=== PATIENT | male | born 1965 | race Two or more races ===

== ENCOUNTER 2024-04-18 22:11 | Inpatient (IN) | payer OTHER ==
[~2024-04-18] VITALS: Ht 154.9 cm; Wt 79.4 kg
[2024-04-18 22:53] LABS: BASOPHILS # (AUTO) 0.1 K/uL (0.0-0.2); BASOPHILS % (AUTO) 0.7 % (0.0-2.0); EOSINOPHILS # (AUTO) 0.1 K/uL (0.0-0.7); EOSINOPHILS % (AUTO) 1.2 % (0.0-6.0); HEMATOCRIT 41 % (39-51); HEMOGLOBIN 13.2 g/dL (13.5-17.5); LYMPHOCYTES # (AUTO) 0.9 K/uL (0.8-4.8); LYMPHOCYTES % (AUTO) 11.8 % (20.0-44.0); MEAN CORPUSCULAR HEMOGLOBIN 29 PG (26.0-33.0); MEAN CORPUSCULAR HGB CONC 32 g/dl (31.0-36.0); MEAN CORPUSCULAR VOLUME 91 fL (80-96); MONOCYTES # (AUTO) 0.5 K/uL (0.1-1.30); MONOCYTES % (AUTO) 6.3 % (2.0-12.0); NEUTROPHILS # (AUTO) 5.9 K/uL (1.8-8.9); PLATELET COUNT (AUTO) 235 K/uL (150-450); RED BLOOD CELL COUNT(AUTO) 4.48 MIL/uL (4.5-6.0); RED CELL DISTRIBUTION WIDTH 15.7 % (11.5-15.0); WHITE BLOOD COUNT (AUTO) 7.4 K/uL (4.3-11.0)
[2024-04-18] MEDS ORDERED: FUROSEMIDE 40 MG/4 ML VIAL ONE (22:57)
[2024-04-18] MEDS: FUROSEMIDE 40 MG/4 ML VIAL IV ONE (23:02)
[2024-04-18 23:09] LABS: CALCIUM, SERUM 8.9 mg/dL (8.5-10.1); CREATININE 1.2 mg/dL (0.6-1.3); POTASSIUM 3.7 mmol/L (3.5-5.1)
[2024-04-18 23:22] LABS: ALBUMIN 3.4 g/dL (3.4-5.0); BILIRUBIN,TOTAL 1.5 mg/dL (0.2-1.0); TOTAL PROTEIN, SERUM 7.1 g/dL (6.4-8.2)
[2024-04-19] VITALS (7 sets, daily range): BP systolic 94–144; BP diastolic 60–91; TEMP 97.5–98.1; O2SAT 96–99
[2024-04-19] MEDS ORDERED: ACETAMINOPHEN 325 MG TABLET PO PRN (02:00)
[2024-04-19] MEDS ORDERED: MAGNESIUM HYDROXIDE 30 ML UDC PO PRN (02:00)
[2024-04-19] MEDS ORDERED: MAG HYDROX/AL HYDROX/SIMETH 30 ML UDC PO PRN (02:00)
[2024-04-19] MEDS ORDERED: ONDANSETRON HCL/PF 4 MG/2 ML VIAL IVP PRN (02:00)
[2024-04-19] MEDS ORDERED: Z GUARD REMEDY 4 OZ OINT TP PRN (02:00)
[2024-04-19 07:16] LABS: BASOPHILS % (AUTO) 0.6 % (0.0-2.0); EOSINOPHILS # (AUTO) 0.1 K/uL (0.0-0.7); EOSINOPHILS % (AUTO) 1.8 % (0.0-6.0); HEMATOCRIT 43 % (39-51); HEMOGLOBIN 14.1 g/dL (13.5-17.5); LYMPHOCYTES # (AUTO) 2.2 K/uL (0.8-4.8); LYMPHOCYTES % (AUTO) 27.5 % (20.0-44.0); MEAN CORPUSCULAR HEMOGLOBIN 30 PG (26.0-33.0); MEAN CORPUSCULAR HGB CONC 33 g/dl (31.0-36.0); MEAN CORPUSCULAR VOLUME 92 fL (80-96); MONOCYTES # (AUTO) 0.8 K/uL (0.1-1.30); MONOCYTES % (AUTO) 10.5 % (2.0-12.0); NEUTROPHILS # (AUTO) 4.7 K/uL (1.8-8.9); NEUTROPHILS % (AUTO) 59.6 % (43.0-81.0); PLATELET COUNT (AUTO) 257 K/uL (150-450); RED BLOOD CELL COUNT(AUTO) 4.69 MIL/uL (4.5-6.0); RED CELL DISTRIBUTION WIDTH 16.2 % (11.5-15.0); WHITE BLOOD COUNT (AUTO) 7.9 K/uL (4.3-11.0)
[2024-04-19 07:22] LABS: CALCIUM, SERUM 8.8 mg/dL (8.5-10.1); CREATININE 1.2 mg/dL (0.6-1.3); MAGNESIUM 2.5 mg/dL (1.8-2.4); PHOSPHORUS 3.3 mg/dL (2.5-4.9)
[2024-04-19] MEDS: PANTOPRAZOLE 40 MG TABLET.DR PO SCH (08:41)
[2024-04-19] MEDS: FUROSEMIDE 40 MG/4 ML VIAL IV SCH (08:41)
[2024-04-19] MEDS: ENOXAPARIN SODIUM 40 MG/0.4 ML DISP.SYRIN SQ SCH (08:42)
[2024-04-19] MEDS ORDERED: MIDO10TA PO (09:07)
[2024-04-19] MEDS ORDERED: DOCU100C36 PO (09:07)
[2024-04-19] MEDS ORDERED: AMIO200T5 PO (09:07)
[2024-04-19] MEDS ORDERED: FURO40TA5 PO (09:07)
[2024-04-19] MEDS ORDERED: FOLI0.4T6 PO (09:07)
[2024-04-19] MEDS ORDERED: DIGO250T PO (09:07)
[2024-04-19] MEDS ORDERED: LOSA25TA3 PO (09:07)
[2024-04-19] MEDS ORDERED: HYDR-4076 PO (09:07)
[2024-04-19] MEDS ORDERED: RIFA550T PO (09:07)
[2024-04-19] MEDS: AMIODARONE HCL 200 MG TABLET PO SCH (12:02)
[2024-04-19] MEDS: RIFAXIMIN 550 MG TABLET PO SCH (12:02)
[2024-04-19] MEDS: DOCUSATE SODIUM 100 MG CAPSULE PO SCH (12:02)
[2024-04-19 12:41] LABS: SERUM AMMONIA 15 umol/L (11-32)
[2024-04-19 13:31] LABS: DIGOXIN < 0.20 ng/mL (0.90-2.00)
[2024-04-20] VITALS: BP 90/70; TEMP 97.5; O2SAT 97
[2024-04-20 04:00] VITALS: BP 105/79; TEMP 97.3; O2SAT 95
[2024-04-20 07:17] LABS: BASOPHILS % (AUTO) 0.5 % (0.0-2.0); EOSINOPHILS # (AUTO) 0.1 K/uL (0.0-0.7); EOSINOPHILS % (AUTO) 1.1 % (0.0-6.0); HEMATOCRIT 42 % (39-51); HEMOGLOBIN 13.7 g/dL (13.5-17.5); LYMPHOCYTES # (AUTO) 1.6 K/uL (0.8-4.8); LYMPHOCYTES % (AUTO) 25.1 % (20.0-44.0); MEAN CORPUSCULAR HEMOGLOBIN 30 PG (26.0-33.0); MEAN CORPUSCULAR HGB CONC 33 g/dl (31.0-36.0); MEAN CORPUSCULAR VOLUME 91 fL (80-96); MONOCYTES # (AUTO) 0.6 K/uL (0.1-1.30); MONOCYTES % (AUTO) 9.1 % (2.0-12.0); NEUTROPHILS # (AUTO) 4.2 K/uL (1.8-8.9); NEUTROPHILS % (AUTO) 64.2 % (43.0-81.0); PLATELET COUNT (AUTO) 253 K/uL (150-450); RED BLOOD CELL COUNT(AUTO) 4.56 MIL/uL (4.5-6.0); RED CELL DISTRIBUTION WIDTH 16.2 % (11.5-15.0); WHITE BLOOD COUNT (AUTO) 6.5 K/uL (4.3-11.0)
[2024-04-20 07:48] LABS: ALBUMIN 3.5 g/dL (3.4-5.0); CALCIUM, SERUM 8.5 mg/dL (8.5-10.1); MAGNESIUM 2.1 mg/dL (1.8-2.4); PHOSPHORUS 3.2 mg/dL (2.5-4.9); POTASSIUM 3.7 mmol/L (3.5-5.1); TOTAL PROTEIN, SERUM 7.3 g/dL (6.4-8.2)
[2024-04-20 08:00] VITALS: BP 123/52; TEMP 97.5; O2SAT 96
[2024-04-20] MEDS: SPIRONOLACTONE 25 MG TABLET PO SCH (08:24)
[2024-04-20] MEDS: DIGOXIN 0.25 MG TABLET PO SCH (08:26)
[2024-04-20] MEDS: METOPROLOL TARTRATE 50 MG TABLET PO SCH (08:32)
[2024-04-20] MEDS ORDERED: METO50TA16 PO (10:55)
[2024-04-20] MEDS ORDERED: SPIR25TA6 PO (10:55)
[2024-04-20 16:00] VITALS: BP 81/64; TEMP 98.2; O2SAT 100
[2024-04-20] MEDS: MUPIROCIN OINT 2% 22 GM TUBE NS SCH (20:59)
[2024-04-20 21:00] VITALS: BP 95/60
== END 2024-04-20 21:23 | disposition home or self-care (01) | DRG 194 ==
LOC: ER 22:13 → TELE 04-19 01:44
PROVIDERS: ADMIT Student in an Organized Health Care Education/Training Program; ATTEND Student in an Organized Health Care Education/Training Program
DX: I11.0 Hypertensive heart disease with heart failure (principal); I95.9 Hypotension, unspecified; I42.8 Other cardiomyopathies; I48.91 Unspecified atrial fibrillation; I50.23 Acute on chronic systolic (congestive) heart failure; K76.9 Liver disease, unspecified
CPT/HCPCS: 36415; 71045-TC; 76700-TC; 80048-TC; 80053-TC; 80162-TC; 82140-TC; 83735-TC; 83880; 84100-TC; 84484-TC; 85025-TC; 87081-TC; 93307-TC; G0378; J1650; J1940

== ENCOUNTER 2024-05-12 20:09 | Inpatient (IN) | payer OTHER ==
[~2024-05-12] VITALS: Ht 162.6 cm; Wt 74.8 kg
[~2024-05-12 20:09] MED LIST: DIGO250T PO; DOCU100C36 PO; FOLI0.4T6 PO; METO50TA16 PO; RIFA550T PO; SPIR25TA6 PO
[2024-05-12 22:36] LABS: BASOPHILS # (AUTO) 0.1 K/uL (0.0-0.2); BASOPHILS % (AUTO) 0.8 % (0.0-2.0); EOSINOPHILS # (AUTO) 0.2 K/uL (0.0-0.7); HEMATOCRIT 46 % (39-51); HEMOGLOBIN 15.2 g/dL (13.5-17.5); LYMPHOCYTES # (AUTO) 1.8 K/uL (0.8-4.8); LYMPHOCYTES % (AUTO) 23.5 % (20.0-44.0); MEAN CORPUSCULAR HEMOGLOBIN 30 PG (26.0-33.0); MEAN CORPUSCULAR HGB CONC 33 g/dl (31.0-36.0); MEAN CORPUSCULAR VOLUME 90 fL (80-96); MONOCYTES # (AUTO) 0.8 K/uL (0.1-1.30); NEUTROPHILS # (AUTO) 4.9 K/uL (1.8-8.9); NEUTROPHILS % (AUTO) 63.7 % (43.0-81.0); PLATELET COUNT (AUTO) 281 K/uL (150-450); RED CELL DISTRIBUTION WIDTH 16.3 % (11.5-15.0); WHITE BLOOD COUNT (AUTO) 7.6 K/uL (4.3-11.0)
[2024-05-12 22:57] LABS: LACTIC ACID 1.1 mmol/L (0.4-2.0)
[2024-05-12 22:59] LABS: INR 1.24 (0.91-1.10); PARTIAL THROMBOPLASTIN TIME 26.2 SEC (24.3-34.3)
[2024-05-12 23:02] LABS: CALCIUM, SERUM 8.3 mg/dL (8.5-10.1); CARBON DIOXIDE 30 mmol/L (21-32); CHLORIDE 104 mmol/L (98-107); CREATININE 1.3 mg/dL (0.6-1.3); GLUCOSE 97 mg/dL (74-106); POTASSIUM 4.5 mmol/L (3.5-5.1); SODIUM SERUM 139 mmol/L (136-145); UREA NITROGEN, BLOOD 19 mg/dL (7-18)
[2024-05-12 23:08] LABS: ALANINE AMINOTRANSFERASE 18 U/L (12-78); ALBUMIN 3.2 g/dL (3.4-5.0); ALKALINE PHOSPHATASE 155 U/L (46-116); ASPARTATE AMINOTRANSFERASE 18 U/L (15-37); BILIRUBIN,DIRECT 0.6 mg/dL (0.0-0.2); NT-PRO BNP 16602 pg/mL (0-125); TOTAL PROTEIN, SERUM 7.5 g/dL (6.4-8.2)
[2024-05-12] MEDS ORDERED: FUROSEMIDE 20 MG/2 ML VIAL ONE (23:34)
[2024-05-12] MEDS: FUROSEMIDE 20 MG/2 ML VIAL IV ONE (23:39)
[2024-05-13] MEDS ORDERED: MAGNESIUM HYDROXIDE 30 ML UDC PO PRN
[2024-05-13] MEDS ORDERED: MAG HYDROX/AL HYDROX/SIMETH 30 ML UDC PO PRN
[2024-05-13] MEDS ORDERED: ONDANSETRON HCL/PF 4 MG/2 ML VIAL IVP PRN
[2024-05-13 06:24] LABS: BASOPHILS # (AUTO) 0.1 K/uL (0.0-0.2); BASOPHILS % (AUTO) 0.8 % (0.0-2.0); EOSINOPHILS # (AUTO) 0.2 K/uL (0.0-0.7); EOSINOPHILS % (AUTO) 2.3 % (0.0-6.0); HEMATOCRIT 43 % (39-51); HEMOGLOBIN 14.4 g/dL (13.5-17.5); LYMPHOCYTES # (AUTO) 1.7 K/uL (0.8-4.8); MEAN CORPUSCULAR HEMOGLOBIN 30 PG (26.0-33.0); MEAN CORPUSCULAR HGB CONC 33 g/dl (31.0-36.0); MEAN CORPUSCULAR VOLUME 90 fL (80-96); MONOCYTES # (AUTO) 0.8 K/uL (0.1-1.30); MONOCYTES % (AUTO) 10.5 % (2.0-12.0); NEUTROPHILS # (AUTO) 4.7 K/uL (1.8-8.9); NEUTROPHILS % (AUTO) 63.4 % (43.0-81.0); PLATELET COUNT (AUTO) 244 K/uL (150-450); RED BLOOD CELL COUNT(AUTO) 4.82 MIL/uL (4.5-6.0); RED CELL DISTRIBUTION WIDTH 16.4 % (11.5-15.0); WHITE BLOOD COUNT (AUTO) 7.4 K/uL (4.3-11.0)
[2024-05-13 07:59] LABS: CALCIUM, SERUM 8.3 mg/dL (8.5-10.1); CARBON DIOXIDE 25 mmol/L (21-32); CHLORIDE 105 mmol/L (98-107); CREATININE 1.1 mg/dL (0.6-1.3); GLUCOSE 99 mg/dL (74-106); MAGNESIUM 2.3 mg/dL (1.8-2.4); NT-PRO BNP 14383 pg/mL (0-125); POTASSIUM 4.2 mmol/L (3.5-5.1); SODIUM SERUM 141 mmol/L (136-145); UREA NITROGEN, BLOOD 18 mg/dL (7-18)
[2024-05-13] MEDS ORDERED: SPIR25TA6 PO (08:05)
[2024-05-13] MEDS ORDERED: METO50TA16 PO (08:05)
[2024-05-13] MEDS ORDERED: PANTOPRAZOLE 40 MG TABLET.DR PO ONE (08:24)
[2024-05-13] MEDS: PANTOPRAZOLE 40 MG TABLET.DR PO SCH (08:28)
[2024-05-13] MEDS ORDERED: FUROSEMIDE 20 MG/2 ML VIAL ONE (09:18)
[2024-05-13] MEDS: FUROSEMIDE 20 MG/2 ML VIAL IV SCH (09:22)
[2024-05-13] MEDS: DOCUSATE SODIUM 100 MG CAPSULE PO SCH (16:38)
[2024-05-13 20:00] VITALS: BP 104/75; TEMP 97.7; O2SAT 98
[2024-05-13] MEDS: METOPROLOL TARTRATE 50 MG TABLET PO SCH (21:00)
[2024-05-13] MEDS: RIFAXIMIN 550 MG TABLET PO SCH (23:20)
[2024-05-14] VITALS: BP 111/89; TEMP 98.1; O2SAT 98
[2024-05-14 04:00] VITALS: BP 115/73; TEMP 98.5; O2SAT 98
[2024-05-14 08:00] VITALS: BP 116/96; TEMP 97.5; O2SAT 99
[2024-05-14 08:01] LABS: BASOPHILS % (AUTO) 0.5 % (0.0-2.0); EOSINOPHILS # (AUTO) 0.2 K/uL (0.0-0.7); EOSINOPHILS % (AUTO) 3.6 % (0.0-6.0); HEMATOCRIT 41 % (39-51); HEMOGLOBIN 13.5 g/dL (13.5-17.5); LYMPHOCYTES # (AUTO) 1.1 K/uL (0.8-4.8); LYMPHOCYTES % (AUTO) 16.5 % (20.0-44.0); MEAN CORPUSCULAR HEMOGLOBIN 30 PG (26.0-33.0); MEAN CORPUSCULAR HGB CONC 33 g/dl (31.0-36.0); MEAN CORPUSCULAR VOLUME 90 fL (80-96); MONOCYTES # (AUTO) 0.7 K/uL (0.1-1.30); MONOCYTES % (AUTO) 11.2 % (2.0-12.0); NEUTROPHILS # (AUTO) 4.3 K/uL (1.8-8.9); NEUTROPHILS % (AUTO) 68.2 % (43.0-81.0); PLATELET COUNT (AUTO) 251 K/uL (150-450); RED BLOOD CELL COUNT(AUTO) 4.57 MIL/uL (4.5-6.0); WHITE BLOOD COUNT (AUTO) 6.4 K/uL (4.3-11.0)
[2024-05-14] MEDS: DAPAGLIFLOZIN PROPANEDIOL 5 MG TABLET PO SCH (09:02)
[2024-05-14] MEDS: FOLIC ACID 1 MG TABLET PO SCH (09:03)
[2024-05-14] MEDS: SPIRONOLACTONE 25 MG TABLET PO SCH (09:04)
[2024-05-14] MEDS: DIGOXIN 0.25 MG TABLET PO SCH (09:04)
[2024-05-14 10:39] LABS: ALBUMIN 3.1 g/dL (3.4-5.0); BILIRUBIN,TOTAL 1.1 mg/dL (0.2-1.0); CALCIUM, SERUM 8.8 mg/dL (8.5-10.1); CREATININE 1.1 mg/dL (0.6-1.3); POTASSIUM 3.9 mmol/L (3.5-5.1); TOTAL PROTEIN, SERUM 6.9 g/dL (6.4-8.2)
[2024-05-14 12:00] VITALS: BP 98/66; TEMP 98.7; O2SAT 99
[2024-05-14 16:00] VITALS: BP 107/55; TEMP 97.3; O2SAT 100
[2024-05-14] MEDS: LACTULOSE 10 G/15 ML UDC (PYXIS) PO SCH (17:02)
[2024-05-14 20:40] VITALS: BP 104/72; TEMP 97.2; O2SAT 99
[2024-05-15 00:10] VITALS: BP 108/79; TEMP 97.4; O2SAT 98
[2024-05-15 05:45] VITALS: BP 109/83; TEMP 97.5; O2SAT 100
[2024-05-15 08:00] VITALS: BP 123/73; TEMP 97.6; O2SAT 100
[2024-05-15] MEDS: Z GUARD REMEDY 4 OZ OINT TP PRN (09:04)
[2024-05-15 09:05] LABS: INR 1.18 (0.91-1.10); PARTIAL THROMBOPLASTIN TIME 27.5 SEC (24.3-34.3); PROTHROMBIN TIME 12.4 SECS (9.2-11.1)
[2024-05-15 12:00] VITALS: BP 107/74; TEMP 97.8; O2SAT 96
[2024-05-15 16:00] VITALS: BP 108/71; TEMP 97.8; O2SAT 99
[2024-05-15 20:00] VITALS: BP 113/67; TEMP 98.6; O2SAT 98
[2024-05-15] MEDS: FUROSEMIDE 20 MG/2 ML VIAL IV SCH (20:50)
[2024-05-16] VITALS: BP 99/67; TEMP 98.2; O2SAT 100
[2024-05-16 04:00] VITALS: BP 117/78; TEMP 98.1; O2SAT 100
[2024-05-16 08:00] VITALS: BP 119/94; TEMP 97.9; O2SAT 97
[2024-05-16 12:00] VITALS: BP_SYST 115; BP_SYST 85; BP_DIAS 56; BP_DIAS 70; TEMP 97.3; O2SAT 98
[2024-05-16 15:16] LABS: CALCIUM, SERUM 8.9 mg/dL (8.5-10.1); POTASSIUM 3.8 mmol/L (3.5-5.1)
[2024-05-16 16:00] VITALS: BP 90/71; TEMP 97.7; O2SAT 96
[2024-05-16] MEDS: SPIRONOLACTONE 25 MG TABLET PO SCH (16:28)
[2024-05-16 20:00] VITALS: BP 108/62; TEMP 97.9; O2SAT 99
[2024-05-16] MEDS: ACETAMINOPHEN 325 MG TABLET PO PRN (22:15)
[2024-05-17] VITALS (7 sets, daily range): BP systolic 95–115; BP diastolic 62–81; TEMP 97.3–98.4; O2SAT 94–99
[2024-05-17 07:44] LABS: ALBUMIN 3.1 g/dL (3.4-5.0); BILIRUBIN,TOTAL 0.8 mg/dL (0.2-1.0); CALCIUM, SERUM 8.5 mg/dL (8.5-10.1); CREATININE 0.9 mg/dL (0.6-1.3); POTASSIUM 3.7 mmol/L (3.5-5.1); TOTAL PROTEIN, SERUM 7.1 g/dL (6.4-8.2)
[2024-05-17] MEDS: FUROSEMIDE 40 MG TABLET PO SCH (08:52)
[2024-05-18] VITALS: BP 111/81; TEMP 97.4; O2SAT 100
[2024-05-18 04:00] VITALS: BP 98/71; TEMP 97.3; O2SAT 100
[2024-05-18 08:31] LABS: BASOPHILS % (AUTO) 0.5 % (0.0-2.0); EOSINOPHILS # (AUTO) 0.3 K/uL (0.0-0.7); EOSINOPHILS % (AUTO) 5.2 % (0.0-6.0); HEMATOCRIT 42 % (39-51); HEMOGLOBIN 13.5 g/dL (13.5-17.5); LYMPHOCYTES # (AUTO) 1.2 K/uL (0.8-4.8); LYMPHOCYTES % (AUTO) 22.2 % (20.0-44.0); MEAN CORPUSCULAR HEMOGLOBIN 29 PG (26.0-33.0); MEAN CORPUSCULAR HGB CONC 32 g/dl (31.0-36.0); MEAN CORPUSCULAR VOLUME 90 fL (80-96); MONOCYTES # (AUTO) 0.7 K/uL (0.1-1.30); MONOCYTES % (AUTO) 13.5 % (2.0-12.0); NEUTROPHILS # (AUTO) 3.2 K/uL (1.8-8.9); NEUTROPHILS % (AUTO) 58.6 % (43.0-81.0); PLATELET COUNT (AUTO) 225 K/uL (150-450); RED BLOOD CELL COUNT(AUTO) 4.66 MIL/uL (4.5-6.0); RED CELL DISTRIBUTION WIDTH 15.8 % (11.5-15.0); WHITE BLOOD COUNT (AUTO) 5.5 K/uL (4.3-11.0)
[2024-05-18 08:51] LABS: CALCIUM, SERUM 8.6 mg/dL (8.5-10.1); CREATININE 0.9 mg/dL (0.6-1.3); MAGNESIUM 2.1 mg/dL (1.8-2.4); PHOSPHORUS 3.9 mg/dL (2.5-4.9); POTASSIUM 3.9 mmol/L (3.5-5.1)
[2024-05-18 09:12] VITALS: BP 112/75
[2024-05-18] MEDS ORDERED: SPIR25TA6 PO (14:56)
[2024-05-18] MEDS ORDERED: DAPA5TAB PO (14:56)
[2024-05-18] MEDS ORDERED: LACT10SO58 PO (14:56)
[2024-05-18] MEDS ORDERED: APIX5TAB PO (14:56)
[2024-05-18] MEDS ORDERED: SACU1TAB PO (14:56)
== END 2024-05-18 15:45 | disposition home or self-care (01) | DRG 194 ==
LOC: EDUNIT# 20:09 → ER 20:21 → EDBD 05-13 04:41 → TRANSITION 05-13 04:41 → TELE1 05-13 10:55
PROVIDERS: ADMIT Nurse Practitioner Family; ATTEND Student in an Organized Health Care Education/Training Program
DX: I11.0 Hypertensive heart disease with heart failure (principal); J96.01 Acute respiratory failure with hypoxia; E44.1 Mild protein-calorie malnutrition; E88.09 Other disorders of plasma-protein metabolism, not elsewhere classified; R18.8 Other ascites; I42.9 Cardiomyopathy, unspecified; I48.20 Chronic atrial fibrillation, unspecified; K74.60 Unspecified cirrhosis of liver; K76.9 Liver disease, unspecified; Z68.28 Body mass index [BMI] 28.0-28.9, adult; I48.0 Paroxysmal atrial fibrillation; I50.23 Acute on chronic systolic (congestive) heart failure
CPT/HCPCS: 36415; 71045-TC; 76705-TC; 80048-TC; 80053-TC; 80076-TC; 82040-TC; 82140-TC; 83605-TC; 83735-TC; 83880; 84100-TC; 84484-TC; 85025-TC; 85610-TC; 85730-TC; 87040-TC; 93971-TC; 97110-TC; 97116-TC; 97530-TC; A6403; G0378; J1940; J2405